=== PATIENT | male | born 1985 | race Caucasian/White ===

== ENCOUNTER 2022-11-21 18:16 | Inpatient (IN) | payer OTHER ==
[2022-11-21 19:30] VITALS: BMI 42.3
[2022-11-21] MEDS ORDERED: MAG HYDROX/AL HYDROX/SIMETH 30 ML UNIT-DOSE CUP PO PRN (20:20)
[2022-11-21] MEDS ORDERED: guaiFENesin 600 MG TABLET.ER (FP) PO PRN (20:20)
[2022-11-21] MEDS ORDERED: MAGNESIUM HYDROX 2400MG/30ML ORAL SUSPENSION 30 ML CUP PO PRN (20:20)
[2022-11-21] MEDS ORDERED: BISMUTH SUBSALICYLATE 524 MG/30 ML PO PRN (20:20)
[2022-11-21] MEDS ORDERED: BENZONATATE 200 MG CAPSULE PO PRN (20:20)
[2022-11-21] MEDS ORDERED: POLYETHYLENE GLYCOL (HEALTHYLAX) 3350 17 GM PACKET PO PRN (20:20)
[2022-11-21] MEDS ORDERED: NALOXONE HCL 0.4 MG/ML VIAL IM PRN (20:20)
[2022-11-21] MEDS ORDERED: NALOXONE HCL (KLOXXADO) 8 MG SPRAY NS PRN (20:20)
[2022-11-21] MEDS ORDERED: IBUPROFEN 400 MG TABLET (FP) PO PRN (20:20)
[2022-11-21] MEDS ORDERED: NICOTINE POLACRILEX 2 MG GUM BUC PRN (20:20)
[2022-11-21] MEDS ORDERED: DICYCLOMINE HCL 10 MG CAPSULE PO PRN (20:20)
[2022-11-21] MEDS ORDERED: LOPERAMIDE HCL 2 MG CAPSULE PO PRN (20:20)
[2022-11-21] MEDS ORDERED: BENZOCAINE/MENTHOL (CHLORASEPTIC ) LOZENGE MM PRN (20:20)
[2022-11-21] MEDS ORDERED: hydrOXYzine PAMOATE 25 MG CAPSULE (FP) PO ONE (21:39)
[2022-11-21] MEDS: hydrOXYzine PAMOATE 25 MG CAPSULE (FP) PO PRN (21:40)
[2022-11-21] MEDS: ACETAMINOPHEN 325 MG TABLET (FP) PO PRN (21:49)
[2022-11-21] MEDS: THIAMINE HCL 100 MG TABLET (FP) PO SCH (21:49)
[2022-11-21] MEDS: MELATONIN 5 MG TABLETS PO SCH (21:49)
[2022-11-21] MEDS: ONDANSETRON *ODT* 4 MG TABLET SL PRN (21:56)
[2022-11-22] MEDS: NICOTINE 21 MG/24 HOURS TOPICAL PATCH TD SCH (09:17)
[2022-11-22] MEDS: methaDONE HCL 40 MG DISPERSABLE TABLET PO SCH (09:17)
[2022-11-22] MEDS: PRENATAL VITAMINS W/ FOLIC ACID TABLET (FP) PO SCH (09:17)
[2022-11-22] MEDS ORDERED: PANTOPRAZOLE 40 MG TABLET PO SCH (10:00)
[2022-11-22] MEDS: hydrOXYzine PAMOATE 25 MG CAPSULE (FP) PO PRN ×2 (10:28→22:20)
[2022-11-22] MEDS: diazePAM 5 MG TABLET PO SCH ×3 (10:45→22:20)
[2022-11-22] MEDS: ONDANSETRON *ODT* 4 MG TABLET SL PRN (10:48)
[2022-11-22 12:10] LABS: HEMATOCRIT 42.5 % (35.4-49); HEMOGLOBIN 13.8 GM/dL (11.7-16.9); MCH 28.2 pg (25.7-33.7); MCHC 32.6 g/dl (32.0-35.9); MEAN CELL VOLUME 86.7 fl (80-96); MEAN PLT VOLUME 7.4 fl (7.5-11.1); PLATELET COUNT 259 10^3/uL (134-434); RDW 13.5 % (11.9-15.9); WHITE BLOOD COUNT 9.9 K/mm3 (4.0-10.0)
[2022-11-22] MEDS: METHOCARBAMOL 500 MG TABLET PO PRN ×2 (13:20→22:20)
[2022-11-22 13:21] LABS: POTASSIUM 3.8 mmol/L (3.5-5.1)
[2022-11-22] MEDS: diazePAM 5 MG TABLET PO PRN (13:21)
[2022-11-22] MEDS: ACETAMINOPHEN 325 MG TABLET (FP) PO PRN (13:22)
[2022-11-22 14:01] LABS: ALBUMIN 3.7 g/dl (3.4-5.0); BLOOD UREA NITROGEN 9.9 mg/dL (7-18); CALCIUM 9.1 mg/dL (8.5-10.1)
[2022-11-22 14:03] LABS: CREATININE 0.8 mg/dL (0.55-1.3)
[2022-11-22 14:06] LABS: TOT PROT 6.8 g/dl (6.4-8.2)
[2022-11-22 14:07] LABS: BILIRUBIN,TOTAL 0.4 mg/dL (0.2-1)
[2022-11-22] MEDS: MELATONIN 5 MG TABLETS PO SCH (22:19)
[2022-11-22] MEDS: THIAMINE HCL 100 MG TABLET (FP) PO SCH (22:19)
[2022-11-22] MEDS: IBUPROFEN 600 MG TABLET (FP) PO PRN (22:24)
[2022-11-23] MEDS: diazePAM 5 MG TABLET PO SCH ×4 (05:48→22:27)
[2022-11-23] MEDS: methaDONE HCL 40 MG DISPERSABLE TABLET PO SCH (05:48)
[2022-11-23] MEDS: METHOCARBAMOL 500 MG TABLET PO PRN ×2 (05:59→22:27)
[2022-11-23] MEDS: hydrOXYzine PAMOATE 25 MG CAPSULE (FP) PO PRN ×2 (05:59→17:21)
[2022-11-23] MEDS ORDERED: PANTOPRAZOLE 40 MG TABLET PO ONE (08:00)
[2022-11-23] MEDS: PRENATAL VITAMINS W/ FOLIC ACID TABLET (FP) PO SCH (10:08)
[2022-11-23] MEDS: NICOTINE 21 MG/24 HOURS TOPICAL PATCH TD SCH (10:09)
[2022-11-23] MEDS: GABAPENTIN 400 MG CAPSULE PO SCH ×2 (13:45→22:27)
[2022-11-23] MEDS: diazePAM 5 MG TABLET PO PRN ×2 (13:46→19:45)
[2022-11-23] MEDS: ACETAMINOPHEN 325 MG TABLET (FP) PO PRN (17:23)
[2022-11-23] MEDS ORDERED: LISINOPRIL 5 MG TABLET PO ONE (22:04)
[2022-11-23] MEDS: MELATONIN 5 MG TABLETS PO SCH (22:27)
[2022-11-23] MEDS: THIAMINE HCL 100 MG TABLET (FP) PO SCH (22:27)
[2022-11-24] MEDS: diazePAM 5 MG TABLET PO SCH ×3 (05:50→22:10)
[2022-11-24] MEDS: GABAPENTIN 400 MG CAPSULE PO SCH ×3 (05:53→22:09)
[2022-11-24] MEDS: METHOCARBAMOL 500 MG TABLET PO PRN ×3 (05:53→22:08)
[2022-11-24] MEDS: hydrOXYzine PAMOATE 25 MG CAPSULE (FP) PO PRN ×2 (05:53→22:09)
[2022-11-24] MEDS: PANTOPRAZOLE 40 MG TABLET PO SCH (05:53)
[2022-11-24] MEDS: methaDONE HCL 40 MG DISPERSABLE TABLET PO SCH (06:13)
[2022-11-24] MEDS: PRENATAL VITAMINS W/ FOLIC ACID TABLET (FP) PO SCH (10:16)
[2022-11-24] MEDS: NICOTINE 21 MG/24 HOURS TOPICAL PATCH TD SCH (10:16)
[2022-11-24] MEDS: diazePAM 5 MG TABLET PO PRN ×2 (10:19→17:36)
[2022-11-24] MEDS: IBUPROFEN 600 MG TABLET (FP) PO PRN (10:19)
[2022-11-24] MEDS: MELATONIN 5 MG TABLETS PO SCH (22:08)
[2022-11-24] MEDS: THIAMINE HCL 100 MG TABLET (FP) PO SCH (22:09)
[2022-11-25] MEDS: diazePAM 5 MG TABLET PO SCH ×2 (06:04→17:42)
[2022-11-25] MEDS: methaDONE HCL 40 MG DISPERSABLE TABLET PO SCH (06:04)
[2022-11-25] MEDS: PANTOPRAZOLE 40 MG TABLET PO SCH (06:05)
[2022-11-25] MEDS: hydrOXYzine PAMOATE 25 MG CAPSULE (FP) PO PRN ×2 (06:05→15:10)
[2022-11-25] MEDS: METHOCARBAMOL 500 MG TABLET PO PRN ×2 (06:05→15:08)
[2022-11-25] MEDS: GABAPENTIN 400 MG CAPSULE PO SCH ×2 (06:05→13:08)
[2022-11-25] MEDS: diazePAM 5 MG TABLET PO PRN (10:05)
[2022-11-25] MEDS: NICOTINE 21 MG/24 HOURS TOPICAL PATCH TD SCH (10:20)
[2022-11-25] MEDS: PRENATAL VITAMINS W/ FOLIC ACID TABLET (FP) PO SCH (10:20)
[2022-11-25 12:58] VITALS: BP 109/74; PULSE 77; RESP 17; TEMP 98
[2022-11-26] MEDS ORDERED: diazePAM 5 MG TABLET PO ONE (06:00)
== END 2022-11-25 16:42 | disposition home or self-care (01) | DRG 773 ==
LOC: YASAS 18:16 → Y3N 21:19
PROVIDERS: ADMIT Allergy & Immunology; ATTEND Surgery
PROC: HZ2ZZZZ Detoxification Services for Substance Abuse Treatment (ICD-10-PCS; principal; 2022-11-21)
DX: F11.20 Opioid dependence, uncomplicated (principal); F12.20 Cannabis dependence, uncomplicated; F17.210 Nicotine dependence, cigarettes, uncomplicated; E66.01 Morbid (severe) obesity due to excess calories; Z68.41 Body mass index [BMI] 40.0-44.9, adult; Z87.11 Personal history of peptic ulcer disease; Z86.59 Personal history of other mental and behavioral disorders; Z91.199 Patient's noncompliance with other medical treatment and regimen due to unspecified reason
CPT/HCPCS: 36415; 80053; 85027; 86780; 87635; 93005; 93010; Q0162